=== PATIENT | female | born 1985 | race Caucasian/White ===

== ENCOUNTER 2017-05-13 05:39 | Emergency (ER) | payer MEDICAID, OTHER ==
--- NOTE | 2017-05-13 06:20 | ER Document Report ---
ED GI/ - General Chief Complaint: Vaginal Bleeding Stated Complaint: ABDOMINAL PAIN/11 WEEKS Time Seen by Provider: 05/13/17 05:59 Mode of Arrival: Ambulatory Information source: Patient Notes: 31-year-old female presents to ED for pelvic pain vaginal bleeding that started on Sunday with spotting she passed a large clot on Sunday around 9:00 70 the pain went from cramping to stabbing. Her last OB ultrasound was 626 and they told she had a 9 week fetus. She has a past medical history of asthma gastritis fracture the right great toe only surgeries her breast reduction and D &C she is 3 para 1 with 1 miscarriage. TRAVEL OUTSIDE OF THE [place] IN LAST 30 DAYS: No - HPI Patient complains to provider of: Pelvic pain, , Vaginal bleeding Onset: Other - sunday spotting with cramping, sunday am large clot adn increased cramping then mn pain became sharp stabbing to right pelvic Timing/Duration: Persistent Quality of pain: Cramping, Sharp, Stabbing Severity at maximum: Moderate Severity in ED: Moderate Pain Level: 4 Location: Pelvis Vaginal bleeding (Compared to normal period): Spotting Menstrual period history: LMP: 11 weeks : 3 Para: 1 Abortions: 1 Rh factor: neg OB ultrasound done: Yes Associated symptoms: Other - pelvic pain and vaginal bleeding Exacerbated by: Movement Relieved by: Denies Similar symptoms previously: No Recently seen / treated by doctor: Yes - Related Data Allergies/Adverse Reactions: Penicillins Allergy (Verified 05/13/17 06:40) Past Medical History - General Information source: Patient - Social History Smoking Status: Former Smoker Cigarette use (# per day): No Chew tobacco use (# tins/day): No Smoking Education Provided: No Frequency of alcohol use: None Drug Abuse: None Occupation: none Lives with: Spouse/Significant other Family History: Arthritis, CAD, CVA, Hyperlipidemia, Hypertension, Malignancy, Thyroid Disfunction Patient has suicidal ideation: No Patient has homicidal ideation: No - Past Medical History Cardiac Medical History: Reports: None Pulmonary Medical History: Reports: Hx Asthma, Hx Bronchitis, Hx Pneumonia EENT Medical History: Reports: None Neurological Medical History: Reports: Hx Migraine Endocrine Medical History: Reports: None Renal/ Medical History: Reports: None Malignancy Medical History: Reports: None GI Medical History: Reports: Hx Gastritis, Hx Gastroesophageal Reflux Disease Musculoskeltal Medical History: Reports Hx Musculoskeletal Trauma - right great toe fracture Skin Medical History: Reports None Psychiatric Medical History: Reports: Hx Anxiety, Hx Depression Traumatic Medical History: Reports: Hx Fractures - right great toe Infectious Medical History: Reports: None Past Surgical History: Reports: Hx Breast Surgery - breast reduction, Hx Section, Hx Gynecologic Surgery - D&C - Immunizations Immunizations up to date: Yes Hx Diphtheria, Pertussis, Tetanus Vaccination: Yes Review of Systems - Review of Systems Constitutional: No symptoms reported EENT: No symptoms reported Cardiovascular: No symptoms reported Respiratory: No symptoms reported Gastrointestinal: No symptoms reported Genitourinary: No symptoms reported Female Genitourinary: , Vaginal bleeding, Other - pelvic pain Musculoskeletal: No symptoms reported Skin: No symptoms reported Hematologic/Lymphatic: No symptoms reported Neurological/Psychological: No symptoms reported -: Yes All other systems reviewed and negative Physical Exam - Vital signs Vitals: Temp Pulse Resp BP Pulse Ox 98.5 F 85 16 107/67 98 05/13/17 05:50 05/13/17 05:50 05/13/17 05:50 05/13/17 05:50 05/13/17 05:50 Interpretation: Normal - General General appearance: Appears well, Alert - HEENT Head: Normocephalic, Atraumatic Eyes: Normal Pupils: PERRL - Respiratory Respiratory status: No respiratory distress Chest status: Nontender Breath sounds: Normal Chest palpation: Normal - Cardiovascular Rhythm: Regular Heart sounds: Normal auscultation Murmur: No - Abdominal Inspection: Normal Distension: No distension Bowel sounds: Normal Tenderness: Nontender Organomegaly: No organomegaly - Genitourinary External exam: Normal Speculum exam: Cervix closed, Vaginal discharge Vaginal bleeding: None Bimanuel exam: Adnexal tenderness. No: Cervical motion tender - Back Back: Normal, Nontender - Extremities General upper extremity: Normal inspection, Nontender, Normal color, Normal ROM , Normal temperature General lower extremity: Normal inspection, Nontender, Normal color, Normal ROM , Normal temperature, Normal weight bearing. No: Cassie's sign - Neurological Neuro grossly intact: Yes Cognition: Normal Orientation: AAOx4 [place] Coma Scale Eye Opening: Spontaneous [place] Coma Scale Verbal: Oriented Shahram Coma Scale Motor: Obeys Commands Shahram Coma Scale Total: 15 Speech: Normal Motor strength normal: LUE, RUE, LLE, RLE Sensory: Normal - Psychological Associated symptoms: Normal affect, Normal mood - Skin Skin Temperature: Warm Skin Moisture: Dry Skin Color: Normal Course - Vital Signs Vital signs: Temp Pulse Resp BP Pulse Ox 98 F 93 14 112/65 98 05/13/17 08:33 05/13/17 08:33 05/13/17 08:33 05/13/17 08:33 05/13/17 08:33 - Laboratory Result Diagrams: 05/13/17 06:19 05/13/17 06:19 Laboratory results interpreted by me: 05/13/17 05/13/17 06:19 06:19 RDW 14.6 H Beta HCG, Quant 935669.00 H Discharge - Discharge Clinical Impression: Hemorrhage in early Pelvic pain affecting Qualifiers: Trimester: first trimester Qualified Code(s): O26.891 - Other specified related conditions, first trimester Condition: Stable Disposition: HOME, SELF-CARE Additional Instructions: Pelvic Pain in Lower abdominal pain during can have many causes. We look for serious causes such as appendicitis, tubal , miscarriage, placental separation, or urinary tract infection. Less serious causes of pain include corpus luteum cyst (ovarian cyst of ) or stretching of the pelvic tissues by the enlarging uterus. Sometimes the pain comes from the bowels. If no specific cause for the pain is found, we attribute the pain to stretching of the uterine ligaments. This is called "round ligament strain." It is not dangerous. Just rest until the pain goes away. Call us or come back for reexamination if any problems occur, such as: (1) Pain that becomes more severe, steady, or becomes concentrated in one specific area. Also, pain that is more severe with movement or coughing. (2) Vomiting that persists or becomes more frequent. (3) Blood in the vomitus, urine, or bowel movements. Blood in the stool may have a tarry or black appearance. (4) Shaking chills or fever greater than 100 degrees. (5) The abdomen becomes more distended or swollen. (6) Bowel movements cease. (7) Vaginal bleeding. BLEEDING DURING EARLY : You have been evaluated for passing blood while . While we take this symptom very seriously, most women with your degree of bleeding will go on to have a perfectly normal baby. At this time, there is no indication that a miscarriage will occur. (A miscarriage occurs when the fetus is abnormal. There is no medicine or treatment to prevent it.) A more serious cause of bleeding is tubal (or ectopic) . An ultrasound usually can show whether the is in the uterus or in the tube. Sometimes in early , no fetus is seen. In this case, careful follow-up, including repeat blood tests and repeat ultrasound, is necessary. Do not douche or have sex for at least a week, or until OK'd by the doctor. Don't use tampons. Call the doctor or return for re-examination if there is an increase in bleeding or cramping, extreme weakness, fainting, new abdominal pain, fever, or passage of tissue. RHOGAM: Rhogam is given to a woman who has Rh negative blood type when she has vaginal bleeding during her or at the time of the delivery of her baby. If a woman is Rh negative, her body will form antibodies against red blood cells from an Rh positive fetus or baby that mix with her blood during a threatened or actual miscarraige or delivery. These antibodies will remain in the woman's body forever and will attack any future Rh positive fetus preventing it from developing into a normal baby. Rhogam is given to prevent the mother's body from forming these antibodies. FOLLOW-UP CARE: If you have been referred to a physician for follow-up care, call the physician s office for an appointment as you were instructed or within the next two days. If you experience worsening or a significant change in your symptoms (very heavy bleeding with large clots of blood, passage of tissue, more severe abdominal / pelvic pain or cramping, feeling faint or severe weakness, fever, etc.), notify the physician immediately or return to the Emergency Department at any time for re-evaluation. OBSTETRIC-GYNECOLOGIC (OB-SHOVEL OPERATOR) PHYSICIANS [place]: The [facility] [address], [place] [phone] [facility] [address] [place] [address] [phone] For active duty and dependents diagnosed with a threatened or miscarriage, you should follow up in the following manner: Standard patients who have a local civilian provider should follow up with that provider. Patients of the [facility] should call your Team Nurse at 8: 00 am the following morning for further instructions. If you are neither a Standard patient nor a patient of the Family Practice Clinic, you should follow up at the [facility] ([facility]) . Patients already enrolled in the [facility] OB Clinic, Prime patients not assigned to the Family Practice Clinic, and Active Duty patients not assigned to [facility] should report to the [facility] Lab at 8:00 am the next morning that the [facility] OB Clinic is open and then you will be seen in the OB Clinic at 11:00 am.
[2017-05-13 06:35] LABS: ABSOLUTE EOSINOPHILS # (AUTO) 0.3 10^3/uL (0.0-0.6); ABSOLUTE LYMPHOCYTES (AUTO) 2.8 10^3/uL (0.5-4.7); ABSOLUTE MONOCYTES (AUTO) 0.6 10^3/uL (0.1-1.4); BASOPHILS % (AUTO) 0.5 % (0-2); EOSINOPHILS % (AUTO) 3.2 % (0-6); HEMATOCRIT 40.3 % (36.0-47.0); HEMOGLOBIN 13.5 g/dL (12.0-15.5); HGB HCT DIFFERENCE 0.2; LYMPHOCYTES % (AUTO) 31.8 % (13-45); MEAN CORPUSCULAR HEMOGLOBIN 28.3 pg (27.0-33.4); MEAN CORPUSCULAR HGB CONC 33.4 g/dL (32.0-36.0); MEAN CORPUSCULAR VOLUME 85 fl (80-97); MONOCYTES % (AUTO) 7.4 % (3-13); RED BLOOD COUNT 4.76 10^6/uL (3.72-5.28); RED CELL DISTRIBUTION WIDTH 14.6 % (11.5-14.0); SEGMENTED NEUTROPHILS % (AUTO) 57.1 % (42-78); WHITE BLOOD COUNT 8.7 10^3/uL (4.0-10.5)
[2017-05-13 06:46] LABS: ALANINE AMINOTRANSFERASE 31 U/L (9-52); ALBUMIN 4.2 g/dL (3.5-5.0); ALKALINE PHOSPHATASE 50 U/L (38-126); ANION GAP 10 (5-19); ASPARTATE AMINO TRANSFERASE 21 U/L (14-36); BILIRUBIN,DIRECT 0.2 mg/dL (0.0-0.4); BILIRUBIN,TOTAL 0.4 mg/dL (0.2-1.3); BLOOD UREA NITROGEN 10 mg/dL (7-20); CALCIUM 9.4 mg/dL (8.4-10.2); CARBON DIOXIDE 25 mmol/L (22-30); CHLORIDE 103 mmol/L (98-107); CREATININE RESULT 0.53 mg/dL (0.52-1.25); GLUCOSE 89 mg/dL (75-110); POTASSIUM 4.1 mmol/L (3.6-5.0); SODIUM 138.1 mmol/L (137-145); TOTAL PROTEIN 7.4 g/dL (6.3-8.2)
[2017-05-13 06:56] LABS: AMORPHOUS SEDIMENT,URINE TRACE /HPF; APPEARANCE,URINE SLIGHTLY-CLOUDY; BILIRUBIN,URINE NEGATIVE (NEGATIVE); GLUCOSE, URINE NEGATIVE (NEGATIVE); KETONES,URINE NEGATIVE (NEGATIVE); LEUKOCYTE ESTERASE,URINE NEGATIVE (NEGATIVE); NITRITE,URINE NEGATIVE (NEGATIVE); PROTEIN,URINE NEGATIVE (NEGATIVE); URINE SPECIFIC GRAVITY 1.014; UROBILINOGEN,URINE NEGATIVE mg/dL (<2.0)
--- NOTE | 2017-05-13 07:14 | RADIOLOGY REPORT (SQ) ---
EXAM DESCRIPTION: U/S 1TRIMESTER/1GEST W/DOPPLER COMPLETED DATE/TIME: 05/13/2017 7:02 am REASON FOR STUDY: right pelvic pain vaginal bleed 11 weeks COMPARISON: None. TECHNIQUE: Transabdominal static and realtime grayscale images acquired of the pelvis. Additional se lected spectral and color Doppler images recorded. All images stored on PACs. bHCG: Not available. LIMITATIONS: None. FINDINGS: FETUS: Living intrauterine . EGA: 10 weeks and 4 days. RAJEEV: 12/05/2017. FHR: 173 beats per minute. SUBCHORIONIC BLEED: No. SIZE OF BLEED: Not applicable. UTERUS: No masses. No anomalies. CERVICAL LENGTH: 2.9 cm length. Closed. RIGHT ADNEXA: Normal ovary with normal vascular flow. No adnexal free fluid. No adnexal masses. 2.9 cm. LEFT ADNEXA: Normal ovary with normal vascular flow. No adnexal free fluid. No adnexal masses. 3.7 cm. FREE FLUID: None. OTHER: No other significant finding. IMPRESSION: LIVING INTRAUTERINE . EGA 10 weeks and 4 days. Trimester of : First - 0 to 13 weeks. TECHNICAL DOCUMENTATION: JOB ID: [id number] [employer]- All Rights Reserved
[2017-05-13 08:09] LABS: CHLAM PCR NOT DETECTED (NOT DETECT)
[2017-05-13 08:35] VITALS: BP 112/65
== END 2017-05-13 09:09 | disposition home or self-care (01) ==
LOC: ER 05:39
DX: O20.9 Hemorrhage in early pregnancy, unspecified (principal); O26.891 Other specified pregnancy related conditions, first trimester; R10.2 Pelvic and perineal pain; O99.512 Diseases of the respiratory system complicating pregnancy, second trimester; J45.909 Unspecified asthma, uncomplicated; Z3A.11 11 weeks gestation of pregnancy; Z87.891 Personal history of nicotine dependence; Z88.0 Allergy status to penicillin
CPT/HCPCS: 99284; 86900; 86901; 36415; 87210; 86850; 84702; 85025; 80053; 81001; 87491; 87591; 76801; 93976; J2790

== ENCOUNTER 2017-09-29 21:32 | Emergency (ER) | payer MEDICAID ==
--- NOTE | 2017-09-29 23:56 | ER Document Report ---
ED GI/ - General Mode of Arrival: Ambulatory Information source: Patient TRAVEL OUTSIDE OF THE [place] IN LAST 30 DAYS: No <AMANDO CLARK - Last Filed: 09/30/17 06:22> <DESHAWN HINDS - Last Filed: 09/30/17 06:27> - General Chief Complaint: Abdominal Pain Stated Complaint: ABDOMINAL PAIN Time Seen by Provider: 09/29/17 23:49 Notes: Patient is a 32 year old female presenting to the emergency department complaining of abdominal pain onset 09/29/2017 at around 10:30. Patient states that she has gastritis and felt like she had a flare up around that time. Patient states that the pain comes in waves and goes into her back. She describes the pain as excruciating. Patients associated symptoms include diaphoresis, vomiting and burning urination. Patient denies hematuria, blood in vomit, or diarrhea. Patient currently takes Nexium and Emetrol (AMBER,TAMAYA) - Related Data Allergies/Adverse Reactions: Penicillins Allergy (Verified 05/13/17 06:40) Past Medical History - General Information source: Patient - Social History Smoking Status: Never Smoker Cigarette use (# per day): No Chew tobacco use (# tins/day): No Smoking Education Provided: No Frequency of alcohol use: Occasional Drug Abuse: None Family History: Arthritis, CAD, CVA, Hyperlipidemia, Hypertension, Malignancy, Thyroid Disfunction Pulmonary Medical History: Reports: Hx Asthma, Hx Bronchitis, Hx Pneumonia Neurological Medical History: Reports: Hx Migraine GI Medical History: Reports: Hx Gastritis, Hx Gastroesophageal Reflux Disease Musculoskeltal Medical History: Reports Hx Musculoskeletal Trauma - right great toe fracture Psychiatric Medical History: Reports: Hx Anxiety, Hx Depression Traumatic Medical History: Reports: Hx Fractures - right great toe Past Surgical History: Reports: Hx Breast Surgery - breast reduction, Hx Section, Hx Gynecologic Surgery - D&C - Immunizations Immunizations up to date: Yes Hx Diphtheria, Pertussis, Tetanus Vaccination: Yes <AMANDO CLARK - Last Filed: 09/30/17 06:22> Review of Systems - Review of Systems Constitutional: See HPI, Diaphoresis EENT: No symptoms reported Cardiovascular: No symptoms reported Respiratory: No symptoms reported Gastrointestinal: See HPI, Abdominal pain Genitourinary: See HPI, Burning Female Genitourinary: No symptoms reported Musculoskeletal: No symptoms reported Skin: No symptoms reported Hematologic/Lymphatic: No symptoms reported Neurological/Psychological: No symptoms reported -: Yes All other systems reviewed and negative <AMANDO CLARK - Last Filed: 09/30/17 06:22> Physical Exam <AMANDO CLARK - Last Filed: 09/30/17 06:22> <DESHAWN HINDS - Last Filed: 09/30/17 06:27> - Vital signs Vitals: Temp Pulse Resp BP Pulse Ox 98.3 F 75 20 117/62 99 09/29/17 21:38 09/29/17 21:38 09/29/17 21:38 09/29/17 21:38 09/29/17 21:38 - Notes Notes: GENERAL: Alert, interacts well. No acute distress. HEAD: Normocephalic, atraumatic. EYES: Pupils equal, round, and reactive to light. Extraocular movements intact. ENT: Oral mucosa moist, tongue midline. NECK: Full range of motion. Supple. Trachea midline. LUNGS: Clear to auscultation bilaterally, no wheezes, rales, or rhonchi. No respiratory distress. HEART: Regular rate and rhythm. No murmurs, gallops, or rubs. ABDOMEN: Soft, Diffusely tender to palpation across abdomen, most tender in epigastrium. Non-distended. Bowel sounds present in all 4 quadrants. EXTREMITIES: Moves all 4 extremities spontaneously. No edema, radial and dorsalis pedis pulses 2/4 bilaterally. No cyanosis. NEUROLOGICAL: Alert and oriented x3. Normal speech. PSYCH: Normal affect, normal mood. SKIN: Warm, dry, normal turgor. No rashes or lesions noted. (AMANDO CLARK) Course - Laboratory Result Diagrams: 09/30/17 00:00 09/30/17 00:00 <AMANDO CLARK - Last Filed: 09/30/17 06:22> - Laboratory Result Diagrams: 09/30/17 00:00 09/30/17 00:00 <DESHAWN HINDS - Last Filed: 09/30/17 06:27> - Re-evaluation Re-evalutation: 09/30/17 02:49 CBC unremarkable except for slightly low platelets at 115, no leukocytosis, CMP unremarkable, lipase normal, urinalysis shows no blood or infection, she is not . Abdominal ultrasound shows a normal gallbladder, pancreas is obscured. At present there is no acute surgical pathology, suspect worsening of her gastritis or ulcer, instructed patient to continue taking Nexium, advised adding Carafate. Discharged home and asked to follow-up with Dr. Diane her bed placement coordinator. (DESHAWN HINDS) - Vital Signs Vital signs: Temp Pulse Resp BP Pulse Ox 97.7 F 73 16 117/72 99 09/30/17 03:46 09/30/17 03:46 09/30/17 03:46 09/30/17 03:46 09/30/17 03:46 - Laboratory Laboratory results interpreted by me: 09/30/17 09/30/17 00:00 00:00 Plt Count 115 L Direct Bilirubin 0.5 H Discharge <AMANDO CLARK - Last Filed: 09/30/17 06:22> <DESHAWN HINDS - Last Filed: 09/30/17 06:27> - Discharge Clinical Impression: Epigastric abdominal pain of unknown etiology Condition: Stable Disposition: HOME, SELF-CARE Additional Instructions: Abdominal Pain There are many causes of abdominal pain. Pain can mean a serious problem requiring surgery (such as appendicitis). It can also be an innocent problem that goes away on its own (such as a viral infection). Often, time must pass to determine the cause of pain. The physician does not feel that hospitalization is necessary, at present. Things may change within the next 24 hours. Call the doctor or come back for re- examination if any problems occur, such as: (1) Pain that becomes more severe, steady, or becomes concentrated in one specific area. Also, pain that is more severe with movement or coughing. (2) Vomiting that persists or becomes more frequent. (3) Blood in the vomitus, urine, or bowel movements. Blood in the stool may have a tarry or black appearance. (4) Shaking chills or fever greater than 100 degrees F. (5) The abdomen becomes more distended or swollen. (6) Bowel movements cease. (7) Failure to improve as expected. Please take the Nexium as directed. Please start taking the Carafate as prescribed. Make sure you wait at least 1 hour after taking her Nexium before you take your Carafate. Please follow-up with Dr. Benedicto as an outpatient. Prescriptions: Ondansetron [Zofran Odt 4 mg Tablet] 1 - 2 tab PO Q4H PRN #15 tab.rapdis PRN Reason: For Nausea/Vomiting Sucralfate [Carafate 1 gm Tablet] 1 gm PO ACHS #120 tablet Scribe Attestation: 09/30/17 06:27 I personally performed the services described in the documentation, reviewed and edited the documentation which was dictated to the scribe in my presence, and it accurately records my words and actions. (DESHAWN HINDS) Scribe Documentation - Scribe Written by Matt:: Matt Kat, 09/30/2017 01:46 acting as scribe for :: Carolyn <AMANDO CLARK - Last Filed: 09/30/17 06:22>
[2017-09-30] MEDS ORDERED: HYDROMORPHONE HCL INJ/PF 2 MG/ML AMPULE IV ONE ×2 (00:22→01:02)
[2017-09-30] MEDS ORDERED: ONDANSETRON HCL INJ/PF 4 MG/2 ML SDV IV ONE ×2 (00:22→01:02)
[2017-09-30] MEDS ORDERED: NORMAL SALINE 1000 ML 1,000 ML IV ONE (00:22)
[2017-09-30 00:25] LABS: ABSOLUTE EOSINOPHILS # (AUTO) 0.3 10^3/uL (0.0-0.6); ABSOLUTE LYMPHOCYTES (AUTO) 2.1 10^3/uL (0.5-4.7); ABSOLUTE MONOCYTES (AUTO) 0.6 10^3/uL (0.1-1.4); ABSOLUTE NEUT (AUTO) 4.9 10^3/uL (1.7-8.2); BASOPHILS % (AUTO) 0.3 % (0-2); EOSINOPHILS % (AUTO) 4.1 % (0-6); HEMATOCRIT 39.4 % (36.0-47.0); HEMOGLOBIN 13.6 g/dL (12.0-15.5); HGB HCT DIFFERENCE 1.4; LYMPHOCYTES % (AUTO) 26.3 % (13-45); MEAN CORPUSCULAR HGB CONC 34.5 g/dL (32.0-36.0); MEAN CORPUSCULAR VOLUME 84 fl (80-97); MONOCYTES % (AUTO) 7.2 % (3-13); RED BLOOD COUNT 4.68 10^6/uL (3.72-5.28); RED CELL DISTRIBUTION WIDTH 12.7 % (11.5-14.0); SEGMENTED NEUTROPHILS % (AUTO) 62.1 % (42-78); WHITE BLOOD COUNT 7.9 10^3/uL (4.0-10.5)
--- NOTE | 2017-09-30 01:56 | RADIOLOGY REPORT (SQ) ---
EXAM DESCRIPTION: U/S ABDOMEN LIMITED W/O DOP COMPLETED DATE/TIME: 09/30/2017 1:23 am REASON FOR STUDY: vomiting, RUQ and epigastric pain COMPARISON: 05/13/2017, ultrasound pelvis. TECHNIQUE: Dynamic and static grayscale images acquired of the abdomen and recorded on PACS. Additio nal selected color Doppler and spectral images recorded. LIMITATIONS: None. FINDINGS: PANCREAS: Obscured. LIVER: No masses. Echotexture normal. LIVER VASCULATURE: Normal directional flow of the main portal vein and hepatic veins. GALLBLADDER: No stones. Normal wall thickness. No pericholecystic fluid. ULTRASOUND-DETECTED CHARLES'S SIGN: Negative. INTRAHEPATIC DUCTS AND COMMON DUCT: CBD and intrahepatic ducts normal caliber. No filling defects. INFERIOR VENA CAVA: Normal flow. AORTA: Partially obscured. RIGHT KIDNEY: Normal size. Normal echogenicity. No solid or suspicious masses. No hydronephrosis. No calcifications. PERITONEAL AND RIGHT PLEURAL SPACE: No ascites or effusions. OTHER: No other significant findings. IMPRESSION: No acute findings. Obscured pancreas. TECHNICAL DOCUMENTATION: JOB ID: [id number]- All Rights Reserved
[2017-09-30 02:21] LABS: ALANINE AMINOTRANSFERASE 32 U/L (9-52); ALBUMIN 4.3 g/dL (3.5-5.0); ALKALINE PHOSPHATASE 50 U/L (38-126); ANION GAP 14 (5-19); ASPARTATE AMINO TRANSFERASE 22 U/L (14-36); BILIRUBIN,DIRECT 0.5 mg/dL (0.0-0.4); BILIRUBIN,TOTAL 0.6 mg/dL (0.2-1.3); BLOOD UREA NITROGEN 12 mg/dL (7-20); CALCIUM 9.3 mg/dL (8.4-10.2); CARBON DIOXIDE 26 mmol/L (22-30); CHLORIDE 105 mmol/L (98-107); CREATININE RESULT 0.64 mg/dL (0.52-1.25); GLUCOSE 100 mg/dL (75-110); LIPASE 81.5 U/L (23-300); SODIUM 144.9 mmol/L (137-145)
[2017-09-30 02:40] LABS: APPEARANCE,URINE CLEAR; BILIRUBIN,URINE NEGATIVE (NEGATIVE); GLUCOSE, URINE NEGATIVE (NEGATIVE); KETONES,URINE NEGATIVE (NEGATIVE); LEUKOCYTE ESTERASE,URINE NEGATIVE (NEGATIVE); NITRITE,URINE NEGATIVE (NEGATIVE); PROTEIN,URINE NEGATIVE (NEGATIVE); URINE SPECIFIC GRAVITY 1.011; UROBILINOGEN,URINE NEGATIVE mg/dL (<2.0)
[2017-09-30] MEDS ORDERED: SUCRALFATE 1 GM TABLET PO ONE (02:48)
[2017-09-30] MEDS ORDERED: ONDANSETRON ODT 4 MG TAB (6 TAB/DSPK) PO PRN (02:48)
[2017-09-30 04:05] VITALS: BP 117/72
== END 2017-09-30 03:46 | disposition home or self-care (01) ==
LOC: ER 21:32
DX: R10.13 Epigastric pain (principal); R61 Generalized hyperhidrosis; R11.10 Vomiting, unspecified; R30.9 Painful micturition, unspecified
CPT/HCPCS: 96376; 99285; 96361; 96374; 96375; 36415; 83690; 85025; 81025; 80053; 81001; 76705; J1170; J3490; J2405; J7030

== ENCOUNTER 2017-10-19 07:55 | Day surgery (SDC) | payer MEDICAID ==
[2017-10-19] MEDS ORDERED: ONDANSETRON HCL INJ/PF 4 MG/2 ML SDV ONE (08:07)
[2017-10-19] MEDS ORDERED: NALOXONE HCL INJ/PF 0.4 MG/1 ML SDV ONE (08:07)
[2017-10-19] MEDS ORDERED: DIPHENHYDRAMINE HCL 50 MG/ML VIAL ONE (08:07)
[2017-10-19] MEDS ORDERED: MIDAZOLAM 2 MG/2 ML INJ ONE (08:08)
[2017-10-19] MEDS ORDERED: FENTANYL CITRATE INJ/PF 100 MCG/2 ML AMPUL ONE (08:09)
[2017-10-19] MEDS ORDERED: GLUCAGON,HUMAN RECOMB 1 MG INJ ONE (08:09)
[2017-10-19] MEDS ORDERED: FLUMAZENIL INJ 0.5 MG/5 ML VIAL ONE (08:09)
[2017-10-19] MEDS ORDERED: EPINEPHRINE INJ 1 MG/10 ML DISP.SYRIN ONE (08:09)
[2017-10-19] MEDS: MIDAZOLAM 2 MG/2 ML INJ ONE ×3 (08:20→09:28)
--- NOTE | 2017-10-19 10:23 | Operative Report ---
Operative Report DATE OF SURGERY: 10/19/17 Operative Report: The risks benefits and alternatives of the procedure explained to the patient in detail and informed consent is obtained.A GIF Olympus video scope was inserted into the patient's mouth and hypopharynx, the esophagus is identified intubated and insufflated, the scope was then advanced through the esophagus stomach and duodenum, retroflexion maneuver is done, the esophagus stomach and first and second portions of the duodenum examined PREOPERATIVE DIAGNOSIS: Nausea vomiting, epigastric pain POSTOPERATIVE DIAGNOSIS: Gastritis, duodenitis. Biopsies obtained to rule out for Helicobacter pylori OPERATION: EGD with biopsy SURGEON: MAIKEL BONDS ANESTHESIA: Moderate Sedation - 5 mg of Versed, 100 mcg of fentanyl. Conscious sedation monitoring time 30 minutes. TISSUE REMOVED OR ALTERED: Gastric mucosal specimen obtained to rule out Helicobacter pylori COMPLICATIONS: None. ESTIMATED BLOOD LOSS: None. INTRAOPERATIVE FINDINGS: As noted above. PROCEDURE: Patient tolerated the procedure well. No immediate postprocedure complications are noted. Patient discharged in good condition. Discharge date 10/19/2017. Discharge diet: Regular. Discharge activity: Regular. 2-3 week follow-up to discuss findings. Patient is instructed to call the office or proceed to the emergency room should there be any further problems or questions. We will await pathology.
[2017-10-19 11:30] VITALS: BP 106/53
== END 2017-10-19 10:49 | disposition home or self-care (01) ==
LOC: END 07:55
PROVIDERS: ATTEND Internal Medicine Gastroenterology
PROC: 0DB68ZX Excision of Stomach, Via Natural or Artificial Opening Endoscopic, Diagnostic (ICD-10-PCS; principal; 2017-10-19 08:30)
DX: R10.13 Epigastric pain (principal); F17.210 Nicotine dependence, cigarettes, uncomplicated; D64.9 Anemia, unspecified; K29.50 Unspecified chronic gastritis without bleeding; K29.80 Duodenitis without bleeding; Z79.899 Other long term (current) drug therapy; Z88.0 Allergy status to penicillin
CPT/HCPCS: 43239; 88342 ×2; 88305 ×2; J2250; J3010; J0171; J1200; J1610; J2310; J2405; J3490

== ENCOUNTER → 2017-12-03 | Outpatient (CLI) | payer MEDICAID ==
--- NOTE | 2017-12-03 10:51 | RADIOLOGY REPORT (SQ) ---
EXAM DESCRIPTION: U/S ABDOMEN COMPLETE W/DOPPLER COMPLETED DATE/TIME: 12/03/2017 9:46 am REASON FOR STUDY: EPIGASTRIC PAIN (R10.13) R10.13 EPIGASTRIC PAIN COMPARISON: None. TECHNIQUE: Dynamic and static grayscale images acquired of the abdomen and recorded on PACS. Additio nal selected color Doppler and spectral images recorded. LIMITATIONS: None. FINDINGS: PANCREAS: No masses. Visualized pancreatic duct normal caliber. LIVER: No masses. Echotexture normal. LIVER VASCULATURE: Normal directional flow of the main portal vein and hepatic veins. GALLBLADDER: No stones. Normal wall thickness. No pericholecystic fluid. ULTRASOUND-DETECTED CHARLES'S SIGN: Negative. INTRAHEPATIC DUCTS AND COMMON DUCT: CBD and intrahepatic ducts normal caliber. No filling defects. INFERIOR VENA CAVA: Normal flow. AORTA: No aneurysm. RIGHT KIDNEY: Normal size. Normal echogenicity. No solid or suspicious masses. No hydronephros is. No calcifications. LEFT KIDNEY: Normal size. Normal echogenicity. No solid or suspicious masses. No hydronephrosi s. No calcifications. SPLEEN: Normal size. No solid masses. PERITONEAL AND PLEURAL SPACES: No ascites or effusions. OTHER: No other significant finding. IMPRESSION: NORMAL ABDOMINAL ULTRASOUND. TECHNICAL DOCUMENTATION: JOB ID: [id number] [employer]- All Rights Reserved
--- NOTE | 2017-12-03 13:38 | RADIOLOGY REPORT (SQ) ---
EXAM DESCRIPTION: NM HIDA SCAN WITH CCK COMPLETED DATE/TIME: 12/03/2017 1:16 pm REASON FOR STUDY: EPIGASTRIC PAIN (R10.13) R10.13 EPIGASTRIC PAIN COMPARISON: None. RADIONUCLIDE AND DOSE: DOSAGE RADIONUCLIDE: 5.4 millicuries Tc99m Mebrofenin. DOSAGE CCK: 1.2 micrograms. DOSAGE MORPHINE: Not required. The route of agent administration: Intravenous TECHNIQUE: Serial imaging right upper quadrant up to 60 minutes following injection of radionuclide. CCK injected after gallbladder visualized. LIMITATIONS: None. FINDINGS: LIVER: Normal visualization without areas of photopenia. INTRAHEPATIC BILE DUCTS: Normal size and no delay in visualization. COMMON BILE DUCT: Normal without dilatation. GALLBLADDER: Normal visualization. Calculated ejection fraction of 49%. Normal range is greater th an 35%. PHYSICAL RESPONSE: Patients presenting complaint was not reproduced. OTHER: No other significant finding. IMPRESSION: NORMAL STUDY WITHOUT CYSTIC OR COMMON DUCT OBSTRUCTION. NORMAL GALLBLADDER EJECTION FRA CTION. NO EVIDENCE FOR BILIARY DYSKINESIS. TECHNICAL DOCUMENTATION: JOB ID: [id number] [email or web address]- All Rights Reserved
== END ==
LOC: RAD 07:47
PROVIDERS: ATTEND Internal Medicine Gastroenterology
DX: R10.13 Epigastric pain (principal)
CPT/HCPCS: 81025; 76700; 93976; 78227; J2805; A9537; Q9969

== ENCOUNTER 2018-06-06 19:39 | Observation (INO) | payer MEDICAID ==
[2018-06-06] MEDS ORDERED: NORMAL SALINE 1000 ML 1,000 ML IV ONE ×2 (19:57→23:17)
--- NOTE | 2018-06-06 20:02 | ER Document Report ---
ED Medical Screen (RME) - General Chief Complaint: Vaginal Bleeding Stated Complaint: VAGINAL BLEEDING Time Seen by Provider: 06/06/18 19:56 Mode of Arrival: Ambulatory Information source: Patient TRAVEL OUTSIDE OF THE [place] IN LAST 30 DAYS: No - HPI Patient complains to provider of: recent miscarriage Onset: This morning - pt with recent miscarriage followed by [facility] in [facility] with heavy vaginal bleeding for the past 2 days with near syncope today. - Related Data Allergies/Adverse Reactions: Penicillins Allergy (Verified 10/19/17 07:56) Past Medical History - Past Medical History Cardiac Medical History: Denies: Hx Coronary Artery Disease, Hx Heart Attack, Hx Hypertension Pulmonary Medical History: Reports: Hx Pneumonia - A CHILD Denies: Hx Asthma, Hx Bronchitis, Hx COPD Neurological Medical History: Reports: Hx Migraine. Denies: Hx Cerebrovascular Accident, Hx Seizures Renal/ Medical History: Denies: Hx Peritoneal Dialysis GI Medical History: Reports: Hx Gastritis, Hx Gastroesophageal Reflux Disease Musculoskeltal Medical History: Denies Hx Arthritis, Reports Hx Musculoskeletal Trauma - right great toe fracture Psychiatric Medical History: Reports: Hx Anxiety, Hx Depression Traumatic Medical History: Reports: Hx Fractures - right great toe Past Surgical History: Reports: Hx Breast Surgery - breast reduction, Hx Section, Hx Gynecologic Surgery - D&C. Denies: Hx Hysterectomy - Immunizations Immunizations up to date: Yes Hx Diphtheria, Pertussis, Tetanus Vaccination: Yes Physical Exam - Vital signs Vitals: Temp Pulse Resp BP Pulse Ox 98.8 F 128 H 18 115/72 100 06/06/18 19:50 06/06/18 19:50 06/06/18 19:50 06/06/18 19:50 06/06/18 19:50 Course - Vital Signs Vital signs: Temp Pulse Resp BP Pulse Ox 98.8 F 128 H 18 115/72 100 06/06/18 19:50 06/06/18 19:50 06/06/18 19:50 06/06/18 19:50 06/06/18 19:50 Doctor's Discharge - Discharge Referrals: MAIKEL BONDS MD [Primary Care Provider] - Follow up as needed
--- NOTE | 2018-06-06 22:08 | RADIOLOGY REPORT (SQ) ---
EXAM DESCRIPTION: U/S NON-OB PELVIS LTD W/O DOP COMPLETED DATE/TIME: 06/06/2018 9:46 pm REASON FOR STUDY: recent miscarriage with continued bleeding COMPARISON: None. TECHNIQUE: Dynamic and static grayscale images acquired of the pelvis via transabdominal approach an d recorded on PACS. Additional selected color Doppler and spectral images recorded. LIMITATIONS: None. FINDINGS: UTERUS: Contour normal. No mass. ENDOMETRIAL STRIPE: Not seen. CERVIX: 2.2 cm. No nabothian cysts. RIGHT OVARY AND DOPPLER: Normal size. No worrisome masses. Normal arterial vascular flow without evid ence for torsion. LEFT OVARY AND DOPPLER: Not seen. FREE FLUID: A small amount of free fluid is seen in the adnexa. OTHER: No other significant finding. MEASUREMENTS: UTERUS: 8.3 x 5 x 5 cm. ENDOMETRIAL STRIPE: Not seen. RIGHT OVARY: 3.4 x 1.6 x 1.7 cm. LEFT OVARY: Not seen. IMPRESSION: Slightly limited study. No significant abnormality is identified. TECHNICAL DOCUMENTATION: JOB ID: [id number] All Rights Reserved Rev-03/22 Reading location - IP/workstation name: [email or web address]
[2018-06-06 22:10] LABS: APPEARANCE,URINE SLIGHTLY-CLOUDY; BILIRUBIN,URINE NEGATIVE (NEGATIVE); COLOR,URINE YELLOW; GLUCOSE, URINE NEGATIVE (NEGATIVE); KETONES,URINE TRACE mg/dL (NEGATIVE); LEUKOCYTE ESTERASE,URINE NEGATIVE (NEGATIVE); NITRITE,URINE NEGATIVE (NEGATIVE); PROTEIN,URINE NEGATIVE (NEGATIVE); URINE SPECIFIC GRAVITY 1.029
[2018-06-06 23:15] LABS: PROTHROMBIN TIME 12.6 SEC (11.4-15.4)
--- NOTE | 2018-06-06 23:15 | ER Document Report ---
ED GI/ - General Chief Complaint: Vaginal Bleeding Stated Complaint: VAGINAL BLEEDING Time Seen by Provider: 06/06/18 19:56 Mode of Arrival: Ambulatory Information source: Patient Notes: Patient recently had a 7 weeks demise on April 26, 2018. 2 weeks later she started having vaginal bleeding. Since then she has been having heavy vaginal bleeding on and off which got worse since yesterday. Today she felt like she was going to pass out. However she denied having any syncopal episodes or loss of consciousness. TRAVEL OUTSIDE OF THE [place] IN LAST 30 DAYS: No - HPI Patient complains to provider of: Vaginal bleeding Onset: Yesterday Timing/Duration: Intermittent Quality of pain: No pain Severity in ED: Mild Pain Level: 3 Location: No: Chest pain, Epigastric Vaginal bleeding (Compared to normal period): Heavier, Bright red OB ultrasound done: No vitamins taken: No Associated symptoms: Dizzy Exacerbated by: Movement Relieved by: Remaining still Similar symptoms previously: No Recently seen / treated by doctor: No - Related Data Allergies/Adverse Reactions: Penicillins Allergy (Verified 10/19/17 07:56) Past Medical History - General Information source: Patient Last Menstrual Period: 02/07/18 - Social History Smoking Status: Former Smoker Chew tobacco use (# tins/day): No Frequency of alcohol use: None Drug Abuse: None Family History: Arthritis, CAD, CVA, Hyperlipidemia, Hypertension, Malignancy, Thyroid Disfunction Patient has suicidal ideation: No Patient has homicidal ideation: No - Past Medical History Cardiac Medical History: Denies: Hx Coronary Artery Disease, Hx Heart Attack, Hx Hypertension Pulmonary Medical History: Reports: Hx Pneumonia - A CHILD Denies: Hx Asthma, Hx Bronchitis, Hx COPD Neurological Medical History: Reports: Hx Migraine. Denies: Hx Cerebrovascular Accident, Hx Seizures Renal/ Medical History: Denies: Hx Peritoneal Dialysis GI Medical History: Reports: Hx Gastritis, Hx Gastroesophageal Reflux Disease Musculoskeletal Medical History: Denies Hx Arthritis, Reports Hx Musculoskeletal Trauma - right great toe fracture Psychiatric Medical History: Reports: Hx Anxiety, Hx Depression Traumatic Medical History: Reports: Hx Fractures - right great toe Past Surgical History: Reports: Hx Breast Surgery - reduction 07/12, Hx Section, Hx Genitourinary Surgery - d&c, Hx Gynecologic Surgery - D&C. Denies: Hx Hysterectomy - Immunizations Immunizations up to date: Yes Hx Diphtheria, Pertussis, Tetanus Vaccination: Yes Review of Systems - Review of Systems Constitutional: Weakness. denies: Chills, Fever EENT: No symptoms reported Cardiovascular: Palpitations Gastrointestinal: No symptoms reported Genitourinary: No symptoms reported Female Genitourinary: Vaginal bleeding Musculoskeletal: No symptoms reported Skin: No symptoms reported Hematologic/Lymphatic: No symptoms reported Neurological/Psychological: No symptoms reported -: Yes All other systems reviewed and negative Physical Exam - Vital signs Vitals: Temp Pulse Resp BP Pulse Ox 98.8 F 128 H 18 115/72 100 06/06/18 19:50 06/06/18 19:50 06/06/18 19:50 06/06/18 19:50 06/06/18 19:50 - General General appearance: Appears well, Alert In distress: None - HEENT Head: Normocephalic, Atraumatic Eyes: Normal Pupils: PERRL - Respiratory Respiratory status: No respiratory distress Chest status: Nontender Breath sounds: Normal Chest palpation: Normal - Cardiovascular Rhythm: Tachycardia Heart sounds: Normal auscultation Murmur: No Friction rub: No - Abdominal Inspection: Normal Distension: No distension Bowel sounds: Normal Tenderness: Nontender Organomegaly: No organomegaly - Genitourinary External exam: Normal Speculum exam: Cervix closed. No: Vaginal discharge, Lesions, Vaginal lacerations Vaginal bleeding: Mild Bimanuel exam: Normal, Other - Blue Print Control Clerk was Ms. Andreia RN.. No: Cervical motion tender, Adnexal mass, Adnexal tenderness - Back Back: Normal, Nontender - Extremities General upper extremity: Normal inspection, Nontender, Normal color, Normal ROM , Normal temperature General lower extremity: Normal inspection, Nontender, Normal color, Normal ROM , Normal temperature, Normal weight bearing. No: Cassie's sign - Neurological Neuro grossly intact: Yes Cognition: Normal Orientation: AAOx4 Shahram Coma Scale Eye Opening: Spontaneous Shahram Coma Scale Verbal: Oriented [place] Coma Scale Motor: Obeys Commands [place] Coma Scale Total: 15 Speech: Normal Motor strength normal: LUE, RUE, LLE, RLE Sensory: Normal - Psychological Associated symptoms: Normal affect, Normal mood - Skin Skin Temperature: Warm Skin Moisture: Dry Skin Color: Normal Course - Vital Signs Vital signs: Temp Pulse Resp BP Pulse Ox 98.8 F 101 H 21 H 101/65 100 06/06/18 19:50 06/06/18 23:02 06/07/18 00:01 06/07/18 00:01 06/07/18 00:01 - Laboratory Result Diagrams: 06/06/18 22:40 06/06/18 22:40 Laboratory results interpreted by me: 06/06/18 06/06/18 06/06/18 21:35 22:40 22:40 RBC 2.42 L Hgb 6.7 L Hct 19.3 L Beta HCG, Quant 386.01 H Urine Ketones TRACE H Urine Blood MODERATE H Urine Urobilinogen 2.0 H Crossmatch 06/06/18 23:48 RBC Hgb Hct Beta HCG, Quant Urine Ketones Urine Blood Urine Urobilinogen Crossmatch See Detail - Transfer of Care Notes: 06/07/18 00:47 I consulted PHOTOENGRAVING HELPER doctor sanitation worker hosing machinery Dr. Fan Way. He wants patient admitted to his service for further evaluation and management. Discharge - Discharge Clinical Impression: Vaginal bleeding, Orthostatic dizziness, Symptomatic anemia, History of miscarriage, Pre-syncope, Dizziness Condition: Fair Disposition: ADMITTED INPATIENT Admitting Provider: Dr Fan Way Unit Admitted: Post Referrals: MAIKEL BONDS MD [ACTIVE STAFF] - Follow up as needed
[2018-06-06 23:16] LABS: ABSOLUTE EOSINOPHILS # (AUTO) 0.2 10^3/uL (0.0-0.6); ABSOLUTE LYMPHOCYTES (AUTO) 2.1 10^3/uL (0.5-4.7); ABSOLUTE MONOCYTES (AUTO) 0.5 10^3/uL (0.1-1.4); ABSOLUTE NEUT (AUTO) 2.9 10^3/uL (1.7-8.2); BASOPHILS % (AUTO) 0.7 % (0-2); EOSINOPHILS % (AUTO) 3.2 % (0-6); HEMATOCRIT 19.3 % (36.0-47.0); MEAN CORPUSCULAR HEMOGLOBIN 27.7 pg (27.0-33.4); MEAN CORPUSCULAR HGB CONC 34.8 g/dL (32.0-36.0); MEAN CORPUSCULAR VOLUME 80 fl (80-97); MONOCYTES % (AUTO) 8.1 % (3-13); PLATELET COUNT 191 10^3/uL (150-450); RED BLOOD COUNT 2.42 10^6/uL (3.72-5.28); RED CELL DISTRIBUTION WIDTH 13.2 % (11.5-14.0); TOTAL CELLS COUNTED % (AUTO) 100 %; WHITE BLOOD COUNT 5.8 10^3/uL (4.0-10.5)
[2018-06-06 23:23] LABS: ALANINE AMINOTRANSFERASE 22 U/L (9-52); ALKALINE PHOSPHATASE 47 U/L (38-126); ANION GAP 13 (5-19); ASPARTATE AMINO TRANSFERASE 21 U/L (14-36); BILIRUBIN,DIRECT 0.2 mg/dL (0.0-0.4); BILIRUBIN,TOTAL 0.2 mg/dL (0.2-1.3); BLOOD UREA NITROGEN 13 mg/dL (7-20); CARBON DIOXIDE 25 mmol/L (22-30); CHLORIDE 106 mmol/L (98-107); GLUCOSE 97 mg/dL (75-110); HEMOGLOBIN 6.7 g/dL (12.0-15.5); POTASSIUM 3.7 mmol/L (3.6-5.0); SODIUM 143.5 mmol/L (137-145); TOTAL PROTEIN 6.6 g/dL (6.3-8.2)
[2018-06-06] MEDS ORDERED: NORMAL SALINE 250 ML IV PRN (23:25)
[2018-06-06 23:44] LABS: RBCS (WET MOUNT) 4+ RBCS SEEN; T.VAGINALIS (WET MOUNT) NO TRICHOMONAS SEEN; WBCS (WET MOUNT) 1+ WBCS SEEN; YEAST (WET MOUNT) NO YEAST SEEN
[2018-06-07 01:01] LABS: CHLAM PCR NOT DETECTED (NOT DETECT); GON PCR NOT DETECTED (NOT DETECT)
[2018-06-07] MEDS ORDERED: MORPHINE SULFATE 10 MG/ML INJ IV PRN ×2 (03:44→18:11)
[2018-06-07] MEDS ORDERED: MISOPROSTOL 0.2 MG TABLET ONE (04:09)
[2018-06-07] MEDS ORDERED: MISOPROSTOL 0.2 MG TABLET PR ONE (04:15)
[2018-06-07] MEDS ORDERED: BUTALB/ACETAMINOPHEN/CAFFEINE 1 TAB EACH PO ONE (08:38)
[2018-06-07] MEDS ORDERED: KETOROLAC TROMETHAMINE 60 MG/2 ML SDV ONE (11:53)
[2018-06-07 12:03] LABS: HEMATOCRIT 25.8 % (36.0-47.0); MEAN CORPUSCULAR HEMOGLOBIN 28.7 pg (27.0-33.4); MEAN CORPUSCULAR HGB CONC 34.9 g/dL (32.0-36.0); MEAN CORPUSCULAR VOLUME 82 fl (80-97); PLATELET COUNT 161 10^3/uL (150-450); RED BLOOD COUNT 3.15 10^6/uL (3.72-5.28); RED CELL DISTRIBUTION WIDTH 13.8 % (11.5-14.0); WHITE BLOOD COUNT 5.1 10^3/uL (4.0-10.5)
[2018-06-07] MEDS ORDERED: LORAZEPAM 0.5 MG TABLET PO PRN (12:17)
[2018-06-07] MEDS ORDERED: GLYCERIN/WITCH HAZEL LEAF 1 EACH MED..PAD TP PRN (12:19)
[2018-06-07] MEDS ORDERED: GLYCERIN/WITCH HAZEL LEAF 1 EACH MED..PAD ONE (12:22)
[2018-06-07] MEDS ORDERED: (PENDING PHARMACY ID) (Sertraline Hcl [Zoloft] 200 MG) PO SCH (12:30)
--- NOTE | 2018-06-07 17:00 | RADIOLOGY REPORT (SQ) ---
EXAM DESCRIPTION: U/S NON OB PEL W/DOPPLER COMPLETED DATE/TIME: 06/07/2018 3:58 pm REASON FOR STUDY: evaluate Endometrial stripe and adnexa COMPARISON: 06/06/2018 pelvic ultrasound TECHNIQUE: Dynamic and static grayscale images acquired of the pelvis via transabdominal approach an d recorded on PACS. Additional selected color Doppler and spectral images recorded. LIMITATIONS: None. FINDINGS: UTERUS: Contour normal. Uterus measures 8.3 x 5 x 5 cm in size. ENDOMETRIAL STRIPE and CERVIX: The endometrium is diffusely abnormal, with cystic bubbly appearance and increased color flow, throughout the cervix and lower uterine segment. This is worrisome for Mol ar , and findings were discussed with Dr Houston 4 pm 06/07/2108. Overall, the endometrial/en docervical canal is distended up to 2 cm in thickness. RIGHT OVARY AND DOPPLER: Normal size, 3.9 x 3.1 x 1.5 cm in size. No worrisome masses. Normal arteria l vascular flow without evidence for torsion. LEFT OVARY AND DOPPLER: Normal size, 3.3 x 2.6 x 2.4 cm in size. No worrisome masses. Normal arterial vascular flow without evidence for torsion. FREE FLUID: There is a small amount of right and left adnexal free pelvic fluid and cul-de-sac pelvic fluid. This is similar compared to 06/06/2018. OTHER: Findings discussed with Dr. Houston IMPRESSION: Molar . TECHNICAL DOCUMENTATION: JOB ID: [id number]- All Rights Reserved Rev Reading location - IP/workstation name: [email or web address]
--- NOTE | 2018-06-07 17:19 | PDOC PROGRESS REPORT ---
Subjective Progress Note for:: 06/07/18 Subjective:: vaginal bleeding Reason For Visit: ANEMIA Physical Exam - Physical Exam Vital Signs: Temp Pulse Resp BP Pulse Ox 98.1 F 78 16 102/62 98 06/07/18 11:53 06/07/18 11:53 06/07/18 11:53 06/07/18 11:53 06/07/18 09:39 Intake & Output 06/06/18 06/07/18 06/08/18 06:59 06:59 06:59 Intake Total 2300 300 Balance 2300 300 Weight 57.9 kg General appearance: PRESENT: no acute distress, well-developed, well-nourished Head exam: PRESENT: atraumatic, normocephalic Respiratory exam: PRESENT: clear to auscultation sherri, symmetrical, unlabored Cardiovascular exam: PRESENT: RRR. ABSENT: diastolic murmur, rubs, systolic murmur GI/Abdominal exam: PRESENT: normal bowel sounds, soft. ABSENT: distended, guarding, mass, organolmegaly, rebound, tenderness Rectal exam: PRESENT: deferred Extremities exam: PRESENT: full ROM. ABSENT: calf tenderness, clubbing, pedal edema Neurological exam: PRESENT: alert, awake, oriented to person, oriented to place , oriented to time, oriented to situation, CN II-XII grossly intact. ABSENT: motor sensory deficit Skin exam: PRESENT: dry, intact, warm. ABSENT: cyanosis, rash Result Laboratory Results: 06/07/18 11:55 06/07/18 11:55 WBC 5.1 RBC 3.15 L Hgb 9.0 L D Hct 25.8 L MCV 82 MCH 28.7 MCHC 34.9 RDW 13.8 Plt Count 161 Impressions: Pelvis Ultrasound 06/07/18 15:17 IMPRESSION: Molar . Status: Imported from PACS Assessment & Plan - Diagnosis (1) Vaginal bleeding Is this a current diagnosis for this admission?: Yes Plan: finally recieved records from Prior provider at approx 1600. MAB dx 04/26/2018 and expectant management elected for (offered cytotec and D&C). pt reports began heavy bleeding on the and she received Rhogam on 05/13. She did not receive cytotec. She was then monitored with US and continued to have thickened endometrial stripe with ES 22.5 on 05/13 then decreased to 17 on 05/27 - however persistently thickened and inhomogeneous. She presented last night and was admitted with Dr. Way and given blood transfusion due to severe anemia. US yesterday inconclusive. However repeat US today with thickened heterogeneous endometrium. Reviewed concerns that BHCG now a month later is still greater than 300. Bleeding is stable. US reviewed with Dr. Wallace and reviewed with patient. REviewed concerns of retained POC vs partial molar (or possibly molar ). Pt consented for Suction D&C. All questions answered. call center nurse to OR. - Time Time Spent with patient: 35 or more minutes Medications reviewed and adjusted accordingly: Yes Anticipated discharge: Home Within: within 24 hours - Inpatient Certification Based on my medical assessment, after consideration of the patient's comorbidities, presenting symptoms, or acuity I expect that the services needed warrant INPATIENT care.: Yes I certify that my determination is in accordance with my understanding of Medicare's requirements for reasonable and necessary INPATIENT services [42 CFR 412.3e].: Yes Medical Necessity: Need for Surgery - Plan Summary Plan Summary: To OR
[2018-06-07] MEDS ORDERED: LIDOCAINE 2% INJ-PF (20 MG/ML) 10 ML AMPUL ONE (17:21)
[2018-06-07] MEDS ORDERED: FENTANYL CITRATE INJ/PF 100 MCG/2 ML AMPUL ONE (17:21)
[2018-06-07] MEDS ORDERED: ONDANSETRON HCL INJ/PF 4 MG/2 ML SDV ONE (17:22)
[2018-06-07] MEDS ORDERED: PROPOFOL INJ 200 MG/20 ML VIAL IV ONE (17:22)
[2018-06-07] MEDS ORDERED: MIDAZOLAM 2 MG/2 ML INJ ONE (17:22)
[2018-06-07] MEDS ORDERED: DEXAMETHASONE SOD PHOSPHATE INJ 4 MG/1 ML VIAL ONE (17:22)
[2018-06-07] MEDS ORDERED: LIDOCAINE 1%/EPINEPHRINE INJ 20 ML VIAL ONE (17:44)
[2018-06-07] MEDS ORDERED: METHYLERGONOVINE MALEATE INJ/PF 0.2 MG/1 ML AMPULE ONE (17:45)
[2018-06-07] MEDS: SUCRALFATE 1 GM TABLET PO SCH ×2 (17:49→22:10)
[2018-06-07] MEDS ORDERED: (PENDING PHARMACY ID) (Ranitidine Hcl [Zantac 150 Mg Tablet] 150 MG) PO SCH (18:00)
[2018-06-07] MEDS ORDERED: PROMETHAZINE HCL INJ 25 MG/1 ML VIAL IV PRN ×3 (18:11→19:15)
[2018-06-07] MEDS ORDERED: FENTANYL CITRATE INJ/PF 100 MCG/2 ML AMPUL IV PRN ×3 (18:11)
[2018-06-07] MEDS ORDERED: MEPERIDINE HCL/PF INJ 25 MG/1 ML DISP.SYRIN IV PRN (18:11)
[2018-06-07] MEDS ORDERED: DIPHENHYDRAMINE HCL 50 MG/ML VIAL IV PRN (18:11)
[2018-06-07] MEDS ORDERED: OXYCODONE-ACETAMINOPHEN 5-325 MG TABLET PO PRN ×2 (18:11)
[2018-06-07] MEDS ORDERED: ONDANSETRON HCL INJ/PF 4 MG/2 ML SDV IV PRN ×2 (18:11→21:47)
[2018-06-07] MEDS ORDERED: PROMETHAZINE HCL INJ 25 MG/1 ML VIAL ONE (18:51)
[2018-06-07] MEDS ORDERED: DOXYCYCLINE HYCLATE 200 MG in DEXTROSE 5%-WATER 250 ML IV ONE (19:00)
[2018-06-07] MEDS ORDERED: HYDROMORPHONE HCL INJ/PF 2 MG/ML AMPULE IM PRN (19:15)
--- NOTE | 2018-06-07 19:15 | Brief Operative Note ---
BRIEF OPERATIVE REPORT DATE OF SURGERY: 06/07/18 TIME OF SURGERY: 18:00 PREOPERATIVE DIAGNOSIS: Missed Ab with retained products of conception POSTOPERATIVE DIAGNOSIS: ANDRÉS SURGEON: MIESHA ELIZABETH FINDINGS: 8wks uterus, AV, no adnexal masses, cervix dilated to 1cm upon exam, Moderate POC, IVF 800ml, 30ml UOP COMPLICATIONS: None ESTIMATED BLOOD LOSS: 100ml TISSUE REMOVED OR ALTERED: Products of conception TECHNICAL PROCEDURE: EUA, paracervical block, Suction D&C
[2018-06-07] MEDS ORDERED: ACETAMINOPHEN WITH CODEINE #3 TABLET PO PRN ×2 (19:17)
[2018-06-07] MEDS ORDERED: (PENDING PHARMACY ID) (Esomeprazole Mag Trihydrate [Nexium] 40 MG) PO SCH (21:00)
[2018-06-07] MEDS ORDERED: FAMOTIDINE 20 MG TABLET PO SCH (22:00)
[2018-06-07] MEDS ORDERED: DIPHENHYDRAMINE HCL 25 MG CAPSULE PO SCH (22:00)
[2018-06-07] MEDS: METHYLERGONOVINE MALEATE 0.2 MG TABLET PO SCH (22:13)
[2018-06-07 23:25] LABS: HEMATOCRIT 29.6 % (36.0-47.0); HEMOGLOBIN 10.1 g/dL (12.0-15.5); MEAN CORPUSCULAR HEMOGLOBIN 27.7 pg (27.0-33.4); MEAN CORPUSCULAR HGB CONC 34.1 g/dL (32.0-36.0); MEAN CORPUSCULAR VOLUME 81 fl (80-97); PLATELET COUNT 188 10^3/uL (150-450); RED BLOOD COUNT 3.64 10^6/uL (3.72-5.28); RED CELL DISTRIBUTION WIDTH 13.9 % (11.5-14.0)
[2018-06-07 23:26] LABS: WHITE BLOOD COUNT 11.8 10^3/uL (4.0-10.5)
[2018-06-08] MEDS: METHYLERGONOVINE MALEATE 0.2 MG TABLET PO SCH ×2 (01:40→05:43)
[2018-06-08] MEDS ORDERED: LANSOPRAZOLE 30 MG TAB.RAP.DR PO SCH (06:00)
[2018-06-08 06:50] LABS: HEMATOCRIT 30.1 % (36.0-47.0); HEMOGLOBIN 10.4 g/dL (12.0-15.5); MEAN CORPUSCULAR HEMOGLOBIN 28.1 pg (27.0-33.4); MEAN CORPUSCULAR HGB CONC 34.5 g/dL (32.0-36.0); MEAN CORPUSCULAR VOLUME 81 fl (80-97); PLATELET COUNT 195 10^3/uL (150-450); RED CELL DISTRIBUTION WIDTH 14.1 % (11.5-14.0); WHITE BLOOD COUNT 7.8 10^3/uL (4.0-10.5)
--- NOTE | 2018-06-08 06:56 | PDOC PROGRESS REPORT ---
Subjective Progress Note for:: 06/08/18 Subjective:: vaginal bleeding improved. S/p suction D&C for MAB Reason For Visit: ANEMIA Physical Exam - Physical Exam Vital Signs: Temp Pulse Resp BP Pulse Ox 97.7 F 64 16 96/64 L 98 06/08/18 04:55 06/08/18 04:55 06/08/18 04:55 06/08/18 04:55 06/08/18 04:55 Intake & Output 06/06/18 06/07/18 06/08/18 06:59 06:59 06:59 Intake Total 2300 1560 Output Total 705 Balance 2300 855 Weight 57.9 kg General appearance: PRESENT: no acute distress, well-developed, well-nourished Head exam: PRESENT: atraumatic, normocephalic Respiratory exam: PRESENT: clear to auscultation sherri, symmetrical, unlabored Cardiovascular exam: PRESENT: RRR. ABSENT: diastolic murmur, rubs, systolic murmur Pulses: PRESENT: normal dorsalis pedis pul, +2 pedal pulses bilateral GI/Abdominal exam: PRESENT: normal bowel sounds, soft. ABSENT: distended, guarding, mass, organolmegaly, rebound, tenderness Rectal exam: PRESENT: deferred Extremities exam: PRESENT: full ROM. ABSENT: calf tenderness, clubbing, pedal edema Neurological exam: PRESENT: alert, awake, oriented to person, oriented to place , oriented to time, oriented to situation, CN II-XII grossly intact. ABSENT: motor sensory deficit Psychiatric exam: PRESENT: appropriate affect, normal mood. ABSENT: homicidal ideation, suicidal ideation Result Laboratory Results: 06/07/18 06/07/18 11:55 23:15 WBC 5.1 11.8 H D RBC 3.15 L 3.64 L Hgb 9.0 L D 10.1 L Hct 25.8 L 29.6 L MCV 82 81 MCH 28.7 27.7 MCHC 34.9 34.1 RDW 13.8 13.9 Plt Count 161 188 Impressions: Pelvis Ultrasound 06/07/18 15:17 IMPRESSION: Molar . Status: Imported from PACS Assessment & Plan - Diagnosis (1) Vaginal bleeding Is this a current diagnosis for this admission?: Yes Plan: s/p uncomplicated Suction D&C last evening. Moderate products of conception noted. Bleeding improved overnight. Will discharge home with pain meds and methergine with f/u in the office on Sun - Time Time Spent with patient: 15-24 minutes Medications reviewed and adjusted accordingly: Yes Anticipated discharge: Home Within: within 24 hours
--- NOTE | 2018-06-08 07:02 | PDOC DISCHARGE SUMMARY ---
General - Admit/Disc Date/PCP Admission Date/Primary Care Provider: 06/07/18 01:09 Discharge Date: 06/08/18 - Discharge Diagnosis (1) Vaginal bleeding Is this a current diagnosis for this admission?: Yes Summary: s/p MAB on 04/26 and then passed tissue on 05/10 per pt. Then per records rec'd yesterday afternoon retained POC since 05/13. Pt given cytotec at admission last evening with repeat US yesterday afternoon with conitnued retained products of conception with appeared abnormal and hydropic. Reviewed findings and US from admission and repeat US with Radiology who agreed with abnormal appearance. Suction D&C performed and patient tolerated well. BHCG significantly decreased this am just 12 hours later. F/u in the office planned for next week. - Additional Information Resuscitation Status: Full Code Prescriptions: Acetaminophen with Codeine [Tylenol #3 Tablet] 1 each PO Q4HP PRN #28 tablet PRN Reason: Docusate Sodium [Colace 100 mg Capsule] 100 mg PO DAILY 30 Days #60 capsule Methylergonovine Maleate [Methergine 0.2 mg Tablet] 0.2 mg PO Q4 #2 tablet Home Medications: Esomeprazole Mag Trihydrate [Nexium] 40 mg PO DAILY 02/19/15 Sucralfate [Carafate 1 gm Tablet] 1 gm PO ACHS #120 tablet 09/30/17 Acetaminophen [Tylenol Arthritis 650 mg Tablet] 650 mg PO ASDIR PRN 10/16/17 Methocarbamol [Robaxin 750 mg Tablet] 750 mg PO DAILY 10/16/17 Ranitidine HCl [Zantac 150 mg Tablet] 150 mg PO BID 10/16/17 Sertraline HCl [Zoloft] 200 mg PO DAILY 10/16/17 Acetaminophen with Codeine [Tylenol #3 Tablet] 1 each PO Q4HP PRN #28 tablet 02/20 Docusate Sodium [Colace 100 mg Capsule] 100 mg PO DAILY 30 Days #60 capsule 02/20 Glycerin/Witch Deandra [place] [Tucks Take-Alongs Pads 1 Each] 1 each TP DAILYP PRN med..pad 06/08/18 Methylergonovine Maleate [Methergine 0.2 mg Tablet] 0.2 mg PO Q4 #2 tablet 06/08 History of Present Illness Patient complains of: vaginal bleeding History of Present Illness: MARIAM MCGEE is a 32 year old female admitted for severe anemia and given transfusion. She is s/p MAB on 04/26 and then passed tissue on 05/10 per pt. Then per records rec'd yesterday afternoon retained POC since 05/13. Pt given cytotec at admission last evening with repeat US yesterday afternoon with conitnued retained products of conception with appeared abnormal and hydropic. Reviewed findings and US from admission and repeat US with Radiology who agreed with abnormal appearance. Suction D&C performed and patient tolerated well. BHCG significantly decreased this am just 12 hours later. F/u in the office planned for next week. Hospital Course Hospital Course: 32 year old female admitted for severe anemia and given transfusion. She is s/ p MAB on 04/26 and then passed tissue on 05/10 per pt. Then per records rec'd yesterday afternoon retained POC since 05/13. Pt given cytotec at admission last evening with repeat US yesterday afternoon with conitnued retained products of conception with appeared abnormal and hydropic. Reviewed findings and US from admission and repeat US with Radiology who agreed with abnormal appearance. Suction D&C performed and patient tolerated well. BHCG significantly decreased this am just 12 hours later. F/u in the office planned for next week. Physical Exam - Physical Exam Vital Signs: Temp Pulse Resp BP Pulse Ox 97.7 F 64 16 96/64 L 98 06/08/18 04:55 06/08/18 04:55 06/08/18 04:55 06/08/18 04:55 06/08/18 04:55 Intake & Output 06/06/18 06/07/18 06/08/18 06:59 06:59 06:59 Intake Total 2300 1560 Output Total 705 Balance 2300 855 Weight 57.9 kg General appearance: PRESENT: no acute distress Head exam: PRESENT: atraumatic, normocephalic Respiratory exam: PRESENT: clear to auscultation sherri, symmetrical, unlabored Cardiovascular exam: PRESENT: RRR. ABSENT: diastolic murmur, rubs, systolic murmur Pulses: PRESENT: normal dorsalis pedis pul, +2 pedal pulses bilateral GI/Abdominal exam: PRESENT: normal bowel sounds, soft. ABSENT: distended, guarding, mass, organolmegaly, rebound, tenderness Rectal exam: PRESENT: deferred Extremities exam: PRESENT: full ROM. ABSENT: calf tenderness, clubbing, pedal edema Neurological exam: PRESENT: alert, awake, oriented to person, oriented to place , oriented to time, oriented to situation, CN II-XII grossly intact. ABSENT: motor sensory deficit Result Laboratory Results: 06/07/18 06/07/18 11:55 23:15 WBC 5.1 11.8 H D RBC 3.15 L 3.64 L Hgb 9.0 L D 10.1 L Hct 25.8 L 29.6 L MCV 82 81 MCH 28.7 27.7 MCHC 34.9 34.1 RDW 13.8 13.9 Plt Count 161 188 Impressions: Pelvis Ultrasound 06/07/18 15:17 IMPRESSION: Molar . Status: Imported from PACS Plan Discharge Plan: Discharge to home Time Spent: Less than 30 Minutes
[2018-06-08] MEDS: SUCRALFATE 1 GM TABLET PO SCH (08:49)
[2018-06-08] MEDS ORDERED: SERTRALINE HCL 50 MG TABLET PO SCH (10:00)
[2018-06-08] MEDS ORDERED: DOCUSATE SODIUM 100 MG CAPSULE PO SCH (10:00)
[2018-06-08 11:10] VITALS: BP 96/64
--- NOTE | 2018-06-09 13:57 | Operative Report ---
Operative Report DATE OF SURGERY: 06/07/18 PREOPERATIVE DIAGNOSIS: Missed Ab with retained products of conception POSTOPERATIVE DIAGNOSIS: ANDRÉS OPERATION: EUA, paracervical block, Suction D&C SURGEON: MIESHA ELIZABETH ANESTHESIA: GA TISSUE REMOVED OR ALTERED: Products of conception COMPLICATIONS: none ESTIMATED BLOOD LOSS: 100ml INTRAOPERATIVE FINDINGS: 8wks uterus, AV, no adnexal masses, cervix dilated to 1cm upon exam, Moderate POC, IVF 800ml, 30ml UOP PROCEDURE: Anesthesia: [Ry SABA, Tonya Webb CONICAL MIXER] Anesthesia: GA IVF: [800ml] UOP: [30ml] Indications: [32yo with recent MAB at approximately 7weeks on 04/26 and began bleeding 05/10/2018. She reports that she has been followed at her providers office with serial US (records to be scanned in the chart). She reports that she has been having heavy bleeding at least weekly and then presented to the ER for fatigue and weakness. She has now had a transfusion. Despite MAB occuring remotely approximately 6 weeks ago, her BHCG is still elevated and there appears to be complex inhomogenous tissue within the uterus which is consistent with retained products of conception or possibly partial molar or molar . Reviewed findings of labs and US and history with patient and reviewed recommendations to have a Suction D&C. The risks, benefits , alternatives reviewed and the patient desires to proceed with planned procedure. ] Procedure: The patient was taken to the Operating Room where general anesthesia was obtained without difficulty. She was prepped and draped in the normal sterile fashion in the dorsal lithotomy position. Exam under anesthesia was performed and noted above. A speculum was placed in the vagina. The anterior cervix was grasped with a single-tooth tenaculum and the uterus sounded to [8cm ] after paracervical block was performed with 8 mL of 1% lidocaine with epinephrine. The cervix was noted to be open approximately 1 cm at the beginning of the procedure. The 8 mm curved suction curet was gently advanced in the usual fashion and good return of tissue. The suction device was then activated and the curet rotated to clear the uterus of the products of conception. A sharp curettage was then performed. The suction device was then gently reintroduced and activated and the curet rotated to clear the uterus of conception which was loosened with recent sharp curettage. The sharp curettage was then performed again until a gritty texture was noted and the cavity was felt to be empty of further tissue. Methergine 0.2mg IM injected into the lower uterine segment. At this time there was minimal bleeding noted from the cervix. All instruments were removed from the patient's cervix and vagina. Silver nitrate was applied to the tenaculum site for hemostasis. Sponge lap needle and instrument counts are correct 2. Doxycycline 200 mg IV was given perioperatively. The patient tolerated the procedure well and was taken to the recovery area awake and in stable condition. The patient was discharged home with pain medications as well as by mouth Methergine.
== END 2018-06-08 11:50 | disposition home or self-care (01) ==
LOC: ER 19:39 → EH 06-07 01:09 → INTOOBSV 06-07 01:09 → 2S 06-07 02:48
PROVIDERS: ADMIT Obstetrics & Gynecology Gynecology; ATTEND Obstetrics & Gynecology Gynecology
PROC: 30233N1 Transfusion of Nonautologous Red Blood Cells into Peripheral Vein, Percutaneous Approach (ICD-10-PCS; 2018-06-07)
PROC: 10D17Z9 Manual Extraction of Products of Conception, Retained, Via Natural or Artificial Opening (ICD-10-PCS; principal; 2018-06-07 17:45)
DX: O03.1 Delayed or excessive hemorrhage following incomplete spontaneous abortion (principal); O03.39 Incomplete spontaneous abortion with other complications; D64.9 Anemia, unspecified; R55 Syncope and collapse; Z87.891 Personal history of nicotine dependence
CPT/HCPCS: 99285; 86900; 86901; 36415 ×3; 87210; 36430; 86870; 86850; 84702 ×3; 85025; 85027 ×2; 85610; 85730; 81025; 80053; 81001; 86920; 87491; 87591; 88305 ×2; 76856; 76857; 93976; 59812; G0378 ×3; P9016; J2250; J3490 ×10; J1100; J1885; J3010; J2210; J2270; J2550; J2405; J7060; J2704; 940

== ENCOUNTER → 2018-06-14 | Outpatient (CLI) | payer MEDICAID | LOC: OD 14:31 | PROVIDERS: ATTEND Student in an Organized Health Care Education/Training Program | DX: O01.9 Hydatidiform mole, unspecified (principal) | CPT/HCPCS: 36415; 84702 ==

== ENCOUNTER → 2018-06-17 | Outpatient (CLI) | payer MEDICAID | LOC: OD 09:42 | PROVIDERS: ATTEND Obstetrics & Gynecology | DX: N96 Recurrent pregnancy loss (principal) | CPT/HCPCS: 36415; 81241; 85210; 85302; 85305; 85306 ==

== ENCOUNTER → 2018-08-28 | Outpatient (CLI) | payer MEDICAID | LOC: OD 12:39 | PROVIDERS: ATTEND Internal Medicine | DX: Z34.90 Encounter for supervision of normal pregnancy, unspecified, unspecified trimester (principal) | CPT/HCPCS: 36415; 84702 ==

== ENCOUNTER → 2019-02-05 | Outpatient (CLI) | payer MEDICAID ==
[2019-02-05 13:13] LABS: MEAN CORPUSCULAR HEMOGLOBIN 28.4 pg (27.0-33.4); MEAN CORPUSCULAR VOLUME 81 fl (80-97); PLATELET COUNT 101 10^3/uL (150-450); RED BLOOD COUNT 4.94 10^6/uL (3.72-5.28); RED CELL DISTRIBUTION WIDTH 13.8 % (11.5-14.0); WHITE BLOOD COUNT 3.9 10^3/uL (4.0-10.5)
[2019-02-05 13:43] LABS: ALANINE AMINOTRANSFERASE 33 U/L (9-52); ALBUMIN 4.3 g/dL (3.5-5.0); ALKALINE PHOSPHATASE 41 U/L (38-126); ANION GAP 9 (5-19); ASPARTATE AMINO TRANSFERASE 29 U/L (14-36); BILIRUBIN,DIRECT 0.3 mg/dL (0.0-0.4); BILIRUBIN,TOTAL 0.7 mg/dL (0.2-1.3); BLOOD UREA NITROGEN 15 mg/dL (7-20); CALCIUM 9.4 mg/dL (8.4-10.2); CARBON DIOXIDE 27 mmol/L (22-30); CHLORIDE 103 mmol/L (98-107); GLUCOSE 75 mg/dL (75-110); POTASSIUM 4.2 mmol/L (3.6-5.0); SODIUM 138.9 mmol/L (137-145); TOTAL PROTEIN 7.3 g/dL (6.3-8.2)
== END ==
LOC: OD 11:25
PROVIDERS: ATTEND Advanced Practice Midwife
DX: N96 Recurrent pregnancy loss (principal)
CPT/HCPCS: 36415; 80053; 82670; 83001; 83002; 83036; 83516; 84144; 84146; 84443; 85027

== ENCOUNTER → 2019-09-29 | Outpatient (CLI) | payer MEDICAID | LOC: OD 12:53 | PROVIDERS: ATTEND Internal Medicine | DX: Z32.01 Encounter for pregnancy test, result positive (principal) | CPT/HCPCS: 36415; 84144; 84443; 84702 ==

== ENCOUNTER → 2019-10-01 | Outpatient (CLI) | payer MEDICAID ==
[2019-10-01 10:54] LABS: FREE T4 (FREE THYROXINE) 0.82 ng/dL (0.78-2.19)
[2019-10-01 11:08] LABS: THYROID STIMULATING HORMONE 2.45 uIU/mL (0.47-4.68)
[2019-10-03 07:04] LABS: T3 UPTAKE (RESIN) 30 % (24-39)
== END ==
LOC: OD 09:33
PROVIDERS: ATTEND Advanced Practice Midwife
DX: Z34.90 Encounter for supervision of normal pregnancy, unspecified, unspecified trimester (principal)
CPT/HCPCS: 36415; 84144; 84439; 84443; 84479; 84702

== ENCOUNTER → 2019-10-07 | Outpatient (CLI) | payer MEDICAID | LOC: OD 11:50 | PROVIDERS: ATTEND Advanced Practice Midwife | DX: N96 Recurrent pregnancy loss (principal) | CPT/HCPCS: 36415; 84144; 84702 ==

== ENCOUNTER 2019-11-06 13:49 | Emergency (ER) | payer MEDICAID ==
--- NOTE | 2019-11-06 14:25 | ER Document Report ---
ED Medical Screen (RME) - General Chief Complaint: Vag Bleeding, +preg <12wks Stated Complaint: VAGINAL BLEEDING/CRAMPING Time Seen by Provider: 11/06/19 14:23 Primary Care Provider: REYES,ELIESER [Primary Care Provider] - Follow up as needed TRAVEL OUTSIDE OF THE [place] IN LAST 30 DAYS: No - HPI Notes: 11/06/19 14:24 Patient is a 34-year-old female with 4 other miscarriages approximately 9.5 weeks who presents complaining of vaginal bleeding over the past week with cramping that started over the last 1 to 2 days. No fever. I have treated and performed a rapid initial assessment of this patient. A comprehensive ED assessment and evaluation of the patient, analysis of test results and completion of medical decision making process will be conducted by additional ED providers. PHYSICAL EXAMINATION: GENERAL: Well-appearing, well-nourished and in no acute distress. A&Ox4. Answers questions appropriately. Abdomen: Limited exam in triage, grossly nontender and soft throughout. - Related Data Allergies/Adverse Reactions: Penicillins Allergy (Verified 10/19/17 07:56) Past Medical History - Past Medical History Cardiac Medical History: Denies: Hx Coronary Artery Disease, Hx Heart Attack, Hx Hypertension Pulmonary Medical History: Reports: Hx Pneumonia - A CHILD Denies: Hx Asthma, Hx Bronchitis, Hx COPD Neurological Medical History: Reports: Hx Migraine. Denies: Hx Cerebrovascular Accident, Hx Seizures Renal/ Medical History: Denies: Hx Peritoneal Dialysis GI Medical History: Reports: Hx Gastritis, Hx Gastroesophageal Reflux Disease Musculoskeltal Medical History: Denies Hx Arthritis, Reports Hx Musculoskeletal Trauma - right great toe fracture Psychiatric Medical History: Reports: Hx Anxiety, Hx Depression Traumatic Medical History: Reports: Hx Fractures - right great toe Past Surgical History: Reports: Hx Breast Surgery - reduction 07/12, Hx Section, Hx Genitourinary Surgery - d&c, Hx Gynecologic Surgery - D&C. Denies: Hx Hysterectomy - Immunizations Immunizations up to date: Yes Hx Diphtheria, Pertussis, Tetanus Vaccination: Yes Physical Exam - Vital signs Vitals: Temp Pulse Resp BP Pulse Ox 97.9 F 86 20 118/63 99 11/06/19 13:58 11/06/19 13:58 11/06/19 13:58 11/06/19 13:58 11/06/19 13:58 Course - Vital Signs Vital signs: Temp Pulse Resp BP Pulse Ox 97.9 F 86 20 118/63 99 11/06/19 13:58 11/06/19 13:58 11/06/19 13:58 11/06/19 13:58 11/06/19 13:58 Doctor's Discharge - Discharge Referrals: LOCALMD,NO [Primary Care Provider] - Follow up as needed
[2019-11-06 15:06] LABS: ABSOLUTE BASOPHILS # (AUTO) 0.1 10^3/uL (0.0-0.2); ABSOLUTE EOSINOPHILS # (AUTO) 0.3 10^3/uL (0.0-0.6); ABSOLUTE LYMPHOCYTES (AUTO) 2.2 10^3/uL (0.5-4.7); ABSOLUTE MONOCYTES (AUTO) 0.6 10^3/uL (0.1-1.4); ABSOLUTE NEUT (AUTO) 4.9 10^3/uL (1.7-8.2); BASOPHILS % (AUTO) 0.7 % (0-2); EOSINOPHILS % (AUTO) 3.6 % (0-6); HEMATOCRIT 38.8 % (36.0-47.0); HEMOGLOBIN 13.8 g/dL (12.0-15.5); LYMPHOCYTES % (AUTO) 27.6 % (13-45); MEAN CORPUSCULAR HEMOGLOBIN 30.5 pg (27.0-33.4); MEAN CORPUSCULAR HGB CONC 35.5 g/dL (32.0-36.0); MEAN CORPUSCULAR VOLUME 86 fl (80-97); PLATELET COUNT 137 10^3/uL (150-450); RED BLOOD COUNT 4.51 10^6/uL (3.72-5.28); RED CELL DISTRIBUTION WIDTH 14.1 % (11.5-14.0); SEGMENTED NEUTROPHILS % (AUTO) 61.1 % (42-78); TOTAL CELLS COUNTED % (AUTO) 100 %
[2019-11-06 15:28] LABS: ALBUMIN 4.3 g/dL (3.5-5.0); ALKALINE PHOSPHATASE 35 U/L (38-126); ANION GAP 9 (5-19); ASPARTATE AMINO TRANSFERASE 29 U/L (14-36); BILIRUBIN,DIRECT 0.1 mg/dL (0.0-0.4); BILIRUBIN,TOTAL 0.4 mg/dL (0.2-1.3); BLOOD UREA NITROGEN 10 mg/dL (7-20); CALCIUM 9.5 mg/dL (8.4-10.2); CARBON DIOXIDE 28 mmol/L (22-30); CHLORIDE 99 mmol/L (98-107); GLUCOSE 83 mg/dL (75-110); POTASSIUM 4.3 mmol/L (3.6-5.0); TOTAL PROTEIN 7.3 g/dL (6.3-8.2)
[2019-11-06] MEDS ORDERED: ACETAMINOPHEN 325 MG TABLET PO ONE (16:24)
--- NOTE | 2019-11-06 16:25 | ER Document Report ---
ED GI/ - General Chief Complaint: Vag Bleeding, +preg <12wks Stated Complaint: VAGINAL BLEEDING/CRAMPING Time Seen by Provider: 11/06/19 14:23 Primary Care Provider: ELIESER CHAMBESR [NO LOCAL MD] - Follow up as needed Information source: Patient Notes: Patient is presently G6, P1 and is 9-1/2 weeks . Patient reports vaginal bleeding off and on over the past week with cramping that started today. Patient states that the bleeding was initially light and has since become only spotting. TRAVEL OUTSIDE OF THE [place] IN LAST 30 DAYS: No - HPI Patient complains to provider of: Pelvic pain, , Vaginal bleeding Onset: Last week Timing/Duration: Waxing and waning, Better Quality of pain: Cramping Pain Level: 2 Context: Vaginal bleeding (Compared to normal period): Spotting Menstrual period history: Sexual history: Active Associated symptoms: Dysuria, Vomiting. denies: Urinary hesitancy, Urinary frequency, Urinary retention, Urinary urgency Exacerbated by: Denies Relieved by: Denies Similar symptoms previously: No Recently seen / treated by doctor: No - Related Data Allergies/Adverse Reactions: Penicillins Allergy (Verified 10/19/17 07:56) Past Medical History - General Information source: Patient - Social History Smoking Status: Never Smoker Frequency of alcohol use: None Drug Abuse: None Occupation: Daycare Lives with: Spouse/Significant other Family History: Arthritis, CAD, CVA, Hyperlipidemia, Hypertension, Malignancy, Thyroid Disfunction Pulmonary Medical History: Reports: Hx Pneumonia - A CHILD Neurological Medical History: Reports: Hx Migraine Endocrine Medical History: Reports: Hx Hypothyroidism Renal/ Medical History: Denies: Hx Peritoneal Dialysis GI Medical History: Reports: Hx Gastritis, Hx Gastroesophageal Reflux Disease Musculoskeletal Medical History: Denies Hx Arthritis, Reports Hx Musculoskeletal Trauma - right great toe fracture Psychiatric Medical History: Reports: Hx Anxiety, Hx Depression Traumatic Medical History: Reports: Hx Fractures - right great toe Past Surgical History: Reports: Hx Breast Surgery - reduction 07/12, Hx Section, Hx Genitourinary Surgery - d&c - Immunizations Immunizations up to date: Yes Hx Diphtheria, Pertussis, Tetanus Vaccination: Yes Review of Systems - Review of Systems Constitutional: No symptoms reported. denies: Fever, Recent illness EENT: No symptoms reported Cardiovascular: No symptoms reported Respiratory: No symptoms reported. denies: Cough Gastrointestinal: Abdominal pain. denies: Vomiting Genitourinary: Dysuria. denies: Flank pain Female Genitourinary: , Vaginal bleeding Musculoskeletal: No symptoms reported. denies: Back pain Skin: No symptoms reported Hematologic/Lymphatic: No symptoms reported Neurological/Psychological: No symptoms reported Physical Exam - Vital signs Vitals: Temp Pulse Resp BP Pulse Ox 97.9 F 86 20 118/63 99 11/06/19 13:58 11/06/19 13:58 11/06/19 13:58 11/06/19 13:58 11/06/19 13:58 - General General appearance: Appears well, Alert In distress: None - HEENT Head: Normocephalic, Atraumatic Eyes: Scleral icterus Conjunctiva: Normal Nasal: Normal Mouth/Lips: Normal Mucous membranes: Normal Neck: Normal, Supple. No: Lymphadenopathy - Respiratory Respiratory status: No respiratory distress Chest status: Nontender Breath sounds: Normal. No: Rales, Rhonchi, Stridor, Wheezing Chest palpation: Normal - Cardiovascular Rhythm: Regular Heart sounds: S1 appreciated, S2 appreciated Murmur: No - Abdominal Inspection: Normal Distension: No distension Bowel sounds: Normal Tenderness: Tender - lower pelvic - Back Back: Normal, Nontender. No: CVA tenderness - Extremities General upper extremity: Normal inspection, Normal strength General lower extremity: Normal inspection, Normal strength - Neurological Neuro grossly intact: Yes Cognition: Normal [place] Coma Scale Eye Opening: Spontaneous [place] Coma Scale Verbal: Oriented [place] Coma Scale Motor: Obeys Commands [place] Coma Scale Total: 15 - Psychological Associated symptoms: Normal affect, Normal mood - Skin Skin Temperature: Warm Skin Moisture: Dry Skin Color: Normal Course - Re-evaluation Re-evalutation: 11/06/19 19:51 Patient reports only mild spotting at this time. No concern for STI. Patient with incidental UTI, will culture urine and start patient on Macrobid at this time. Patient encouraged to follow-up with her OB for recheck. - Vital Signs Vital signs: Temp Pulse Resp BP Pulse Ox 98.3 F 78 16 117/67 97 11/06/19 20:20 11/06/19 20:20 11/06/19 20:20 11/06/19 20:20 11/06/19 20:20 - Laboratory Result Diagrams: 11/06/19 14:30 11/06/19 14:30 Laboratory results interpreted by me: 11/06/19 11/06/19 11/06/19 14:30 14:30 14:30 RDW 14.1 H Plt Count 137 L Sodium 136.1 L Alkaline Phosphatase 35 L Beta HCG, Quant 545574.00 H Urine Blood SMALL H Leukocyte Esterase Rfl TRACE H Urine Ascorbic Acid 20 H 11/06/19 19:50 Labs- Entire Visit 11/06/19 11/06/19 11/06/19 14:30 14:30 14:30 WBC 8.0 RBC 4.51 Hgb 13.8 Hct 38.8 MCV 86 MCH 30.5 MCHC 35.5 RDW 14.1 H Plt Count 137 L Lymph % (Auto) 27.6 [place] % (Auto) 7.0 Eos % (Auto) 3.6 Baso % (Auto) 0.7 Absolute Neuts (auto) 4.9 Absolute Lymphs (auto) 2.2 Absolute Monos (auto) 0.6 Absolute Eos (auto) 0.3 Absolute Basos (auto) 0.1 Seg Neutrophils % 61.1 Sodium 136.1 L Potassium 4.3 Chloride 99 Carbon Dioxide 28 Anion Gap 9 BUN 10 Creatinine 0.60 Est GFR ( Amer) > 60 Est GFR (MDRD) Non-Af > 60 Glucose 83 Calcium 9.5 Total Bilirubin 0.4 Direct Bilirubin 0.1 Neonat Total Bilirubin Not Reportable Neonat Direct Bilirubin Not Reportable Neonat Indirect Bili Not Reportable AST 29 ALT 18 Alkaline Phosphatase 35 L Total Protein 7.3 Albumin 4.3 Beta HCG, Quant 282325.00 H Total Beta HCG POSITIVE Urine Color YELLOW Urine Appearance SLIGHTLY-CLOUDY Urine pH 7.0 Ur Specific [place] 1.024 Urine Protein NEGATIVE Urine Glucose (UA) NEGATIVE Urine Ketones NEGATIVE Urine Blood SMALL H Urine Nitrite (Reflex) NEGATIVE Urine Bilirubin NEGATIVE Urine Urobilinogen NEGATIVE Leukocyte Esterase Rfl TRACE H Urine RBC (Auto) 0 Urine WBC (Reflex) 1 Squamous Epi Cells Auto 2 Urine Mucus (Auto) RARE Urine Ascorbic Acid 20 H Blood Type Antibody Screen Rhogam Indicated 11/06/19 15:50 WBC RBC Hgb Hct MCV MCH MCHC RDW Plt Count Lymph % (Auto) [place] % (Auto) Eos % (Auto) Baso % (Auto) Absolute Neuts (auto) Absolute Lymphs (auto) Absolute Monos (auto) Absolute Eos (auto) Absolute Basos (auto) Seg Neutrophils % Sodium Potassium Chloride Carbon Dioxide Anion Gap BUN Creatinine Est GFR ( Amer) Est GFR (MDRD) Non-Af Glucose Calcium Total Bilirubin Direct Bilirubin Neonat Total Bilirubin Neonat Direct Bilirubin Neonat Indirect Bili AST ALT Alkaline Phosphatase Total Protein Albumin Beta HCG, Quant Total Beta HCG Urine Color Urine Appearance Urine pH Ur Specific [place] Urine Protein Urine Glucose (UA) Urine Ketones Urine Blood Urine Nitrite (Reflex) Urine Bilirubin Urine Urobilinogen Leukocyte Esterase Rfl Urine RBC (Auto) Urine WBC (Reflex) Squamous Epi Cells Auto Urine Mucus (Auto) Urine Ascorbic Acid Blood Type B NEGATIVE Antibody Screen NEGATIVE Rhogam Indicated RHOGAM REQUESTED - Diagnostic Test Radiology reviewed: Reports reviewed Discharge - Discharge Clinical Impression: Qualifiers: Weeks of gestation: 9 weeks Qualified Code(s): Z3A.09 - 9 weeks gestation of UTI (urinary tract infection) Qualifiers: Urinary tract infection type: site unspecified Hematuria presence: with hematuria Qualified Code(s): N39.0 - Urinary tract infection, site not specified Pelvic pain affecting Qualifiers: Trimester: first trimester Qualified Code(s): O26.891 - Other specified related conditions, first trimester Condition: Stable Disposition: HOME, SELF-CARE Instructions: Bleeding During Early ([facility]), Nitrofurantoin ([facility]), Pelvic Pain in ([facility]), Urinary Tract Infection ([facility]) Additional Instructions: Return immediately for any new or worsening symptoms Followup with your primary care provider, call tomorrow to make a followup appointment Urine culture is pending, we will call if you need any different treatment Prescriptions: Nitrofurantoin/Nitrofuran Mac [Macrobid 100 mg Capsule] 100 mg PO BID #9 capsule Referrals: LOCAL,NO [NO LOCAL MD] - Follow up as needed
--- NOTE | 2019-11-06 17:36 | RADIOLOGY REPORT (SQ) ---
EXAM DESCRIPTION: U/S 1TRIMESTER/1GEST W/DOPPLER COMPLETED DATE/TIME: 11/06/2019 5:15 pm REASON FOR STUDY: approx 9.5 weeks preg, bleeding/cramps COMPARISON: None. TECHNIQUE: Transabdominal static and realtime grayscale images acquired of the pelvis. Additional se lected spectral and color Doppler images recorded. All images stored on PACs. [id number] CLINICAL DATES: 10 weeks 2 days LIMITATIONS: None. FINDINGS: FETUS: Single Living intrauterine . ULTRASOUND EGA: 9 weeks 4 days ULTRASOUND RAJEEV: 06/06/2020 EFW: Not applicable less than 20 weeks. CRL: 2.73 cm FHR: 180 beats per minute. SURVEY: No visualized anomalies. AMNIOTIC FLUID: Adequate amount. PLACENTA: Not yet developed due to early gestation. SUBCHORIONIC BLEED: No. SIZE OF BLEED: Not applicable. UTERUS: No masses. No anomalies. CERVICAL LENGTH: 2.4 cm Closed. RIGHT ADNEXA: 1.5 cm luteal cyst. Normal color flow. No adnexal free fluid. No adnexal masses. LEFT ADNEXA: Ovary not identified due to poor acoustical window. No adnexal free fluid. No adnexal masses. FREE FLUID: None. OTHER: No other significant finding. IMPRESSION: LIVING INTRAUTERINE . EGA 9 weeks 4 days Trimester of : First trimester - 0 to 13 weeks. TECHNICAL DOCUMENTATION: JOB ID: [id number] [employer]- All Rights Reserved rev-03/22 Reading location - IP/workstation name: [email or web address]
[2019-11-06 19:01] LABS: APPEARANCE,URINE SLIGHTLY-CLOUDY; BILIRUBIN,URINE NEGATIVE (NEGATIVE); COLOR,URINE YELLOW; GLUCOSE, URINE NEGATIVE (NEGATIVE); KETONES,URINE NEGATIVE (NEGATIVE); PROTEIN,URINE NEGATIVE (NEGATIVE); URINE SPECIFIC GRAVITY 1.024; UROBILINOGEN,URINE NEGATIVE mg/dL (<2.0)
[2019-11-06] MEDS ORDERED: NITROFURANTOIN MONOHYD/M-CRYST 100 MG CAPSULE PO ONE (19:50)
[2019-11-06 20:22] VITALS: BP 117/67
== END 2019-11-06 20:24 | disposition home or self-care (01) ==
LOC: ER 13:49
DX: O23.41 Unspecified infection of urinary tract in pregnancy, first trimester (principal); O26.891 Other specified pregnancy related conditions, first trimester; R10.2 Pelvic and perineal pain; O26.851 Spotting complicating pregnancy, first trimester; O21.9 Vomiting of pregnancy, unspecified; Z3A.09 9 weeks gestation of pregnancy; Z88.0 Allergy status to penicillin
CPT/HCPCS: 99284; 86900; 86901; 36415; 87086; 86850; 84702; 85025; 80053; 81001; 76801; 93976; J2790; J3490 ×2; J8499

== ENCOUNTER → 2020-10-13 | Outpatient (CLI) | payer MEDICAID ==
[2020-10-13 17:57] LABS: ABSOLUTE BASOPHILS # (AUTO) 0.1 10^3/uL (0.0-0.2); ABSOLUTE EOSINOPHILS # (AUTO) 0.4 10^3/uL (0.0-0.6); ABSOLUTE LYMPHOCYTES (AUTO) 2.5 10^3/uL (0.5-4.7); ABSOLUTE MONOCYTES (AUTO) 0.5 10^3/uL (0.1-1.4); ABSOLUTE NEUT (AUTO) 2.8 10^3/uL (1.7-8.2); BASOPHILS % (AUTO) 1.1 % (0-2); EOSINOPHILS % (AUTO) 6.7 % (0-6); HEMATOCRIT 40.6 % (36.0-47.0); HEMOGLOBIN 13.7 g/dL (12.0-15.5); LYMPHOCYTES % (AUTO) 39.3 % (13-45); MEAN CORPUSCULAR HEMOGLOBIN 27.1 pg (27.0-33.4); MEAN CORPUSCULAR HGB CONC 33.8 g/dL (32.0-36.0); MEAN CORPUSCULAR VOLUME 80 fl (80-97); PLATELET COUNT 143 10^3/uL (150-450); RED BLOOD COUNT 5.07 10^6/uL (3.72-5.28); RED CELL DISTRIBUTION WIDTH 16.3 % (11.5-14.0); SEGMENTED NEUTROPHILS % (AUTO) 44.9 % (42-78); TOTAL CELLS COUNTED % (AUTO) 100 %; WHITE BLOOD COUNT 6.3 10^3/uL (4.0-10.5)
[2020-10-13 18:20] LABS: ALBUMIN 4.8 g/dL (3.5-5.0); ALKALINE PHOSPHATASE 62 U/L (38-126); ANION GAP 8 (5-19); ASPARTATE AMINO TRANSFERASE 38 U/L (14-36); BILIRUBIN,DIRECT 0.1 mg/dL (0.0-0.4); BILIRUBIN,TOTAL 0.7 mg/dL (0.2-1.3); BLOOD UREA NITROGEN 20 mg/dL (7-20); CALCIUM 9.6 mg/dL (8.4-10.2); CARBON DIOXIDE 30 mmol/L (22-30); CHLORIDE 102 mmol/L (98-107); GLUCOSE 83 mg/dL (75-110); IRON(TIBC) 153.5 ug/dL (37-170); POTASSIUM 4.3 mmol/L (3.6-5.0); TOTAL PROTEIN 7.7 g/dL (6.3-8.2)
[2020-10-13 18:36] LABS: FREE T4 (FREE THYROXINE) 0.71 ng/dL (0.78-2.19)
[2020-10-13 18:50] LABS: THYROID STIMULATING HORMONE 2.02 uIU/mL (0.47-4.68)
[2020-10-13 18:54] LABS: FERRITIN 7.49 ng/mL (6.2-137.0)
== END ==
LOC: OD 16:25
PROVIDERS: ATTEND Nurse Practitioner Family
DX: F41.8 Other specified anxiety disorders (principal); R20.0 Anesthesia of skin; R42 Dizziness and giddiness; R68.89 Other general symptoms and signs
CPT/HCPCS: 36415; 80053; 82607; 82652; 82728; 82746; 83540; 83550; 84439; 84443; 85025